=== PATIENT | male | born 1975 | race Caucasian/White ===

== ENCOUNTER → 2016-06-28 | Outpatient (CLI) | payer OTHER ==
--- NOTE | 2016-06-29 08:32 | MR ---
MRI Lower Extremity, Left Knee History: Knee pain. Unable to straighten knee. History of prior surgery. Comparison: None. Technique: MRI was performed of the left knee using a 1.5 [employer] MRI system. Axial, sagittal, and sabra nal images were obtained with standard imaging sequences. Patient could not straighten knee so a card iac coil was used instead of the knee coil. Findings: General: Moderate suprapatellar joint effusion. Ligaments and Tendons: Postsurgical changes are seen of prior ACL reconstruction with complete tear i n the graft. Posterior cruciate ligament is intact. Medial collateral ligament is unremarkable. Edema along the distal pes anserinus. Iliotibial band, fibular collateral ligament, and biceps femoris are intact. Popliteus tendon is intact. Menisci and Cartilage: Complex tear of the medial meniscus. Majority of the posterior horn and body i s absent. Displaced meniscal fragment is seen in the superior meniscal recess between the medial izzy ateral ligament and medial tibial plateau measuring 1 cm. A displaced meniscal fragment is seen super ior to the meniscal root measuring 16 mm. There is maceration and tear of the remaining anterior horn and body. Full-thickness cartilage loss is seen in the medial compartment more predominant in the ce ntral and posterior weightbearing portion. There appears to be an undersurface tear in the anterior h orn lateral meniscus with a perimeniscal cyst anterior to the anterior horn. No significant cartilage attenuation in the lateral compartment. Extensor Mechanism: Cartilage signal abnormality and mild thinning are seen in the patella and trochl ear groove. This is more predominant in the inferior trochlear groove. Quadriceps tendon is unremarka ble. There is abnormal signal intensity in the patellar tendon indicating underlying tendinopathy and also defect from prior graft harvest. Impression: 1. Postsurgical changes of prior ACL reconstruction with complete tear of the graft. 2. Complex tear of the medial meniscus with a majority of the posterior horn and body displaced super ior to the meniscal root and in the superior meniscal recess. 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 3. Undersurface tear anterior horn lateral meniscus and adjacent perimeniscal cyst. 4. Strain distal pes anserinus. 5. Suprapatellar joint effusion. 6. 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 Tendinopathy and postsurgical change patellar tendon.
== END ==
LOC: FIMAGING 16:03
PROVIDERS: ATTEND Physician Assistant
DX: T85.898A Other specified complication of other internal prosthetic devices, implants and grafts, initial encounter (principal); M23.232 Derangement of other medial meniscus due to old tear or injury, left knee; M25.462 Effusion, left knee; M22.42 Chondromalacia patellae, left knee

== ENCOUNTER → 2018-07-01 | Outpatient (CLI) | payer OTHER | LOC: FIMAGING 10:09 | PROVIDERS: ATTEND Orthopaedic Surgery | DX: Z01.818 Encounter for other preprocedural examination (principal); M17.12 Unilateral primary osteoarthritis, left knee; M11.262 Other chondrocalcinosis, left knee; K57.30 Diverticulosis of large intestine without perforation or abscess without bleeding ==

== ENCOUNTER 2018-07-04 09:39 | Observation (INO) | payer OTHER ==
[2018-07-04] MEDS ORDERED: TRANEXAMIC ACID 3,000 MG in NS (SYRINGE) 50 ML IRR ONE (11:00)
[2018-07-04] MEDS ORDERED: ROPIVACAINE 0.2% 80 MG, EPINEPHrine 0.2 MG, KETOROLAC TROMETHAMINE 30 MG in SYRINGE 0 ML IU ONE (11:00)
--- NOTE | 2018-07-16 06:24 | PDHPUP ---
History & Physical Update H&P update statement: This history and physical update is based on an assessment of the patient which was completed after admission or registration (within 24 hours), but prior to the surgery/procedure. H&P update: H&P reviewed & patient examined, no change in patient's condition since H&P completed
[2018-07-16] MEDS ORDERED: ACETAMINOPHEN 325 MG TAB PO ONE (09:21)
[2018-07-16] MEDS ORDERED: ceFAZolin 2 GM/DEXTROSE 100 ML IV ONE (09:21)
[2018-07-16] MEDS ORDERED: LIDOCAINE 1% 2 ML INJ ID PRN (09:21)
[2018-07-16] MEDS ORDERED: LR 1,000 ML IV ONE (09:21)
[2018-07-16] MEDS ORDERED: FAMOTIDINE 20 MG TAB PO ONE (09:21)
[2018-07-16] MEDS ORDERED: DEXAMETHASONE 4 MG/ML VIAL IVP ONE (09:21)
[2018-07-16] MEDS ORDERED: TRANEXAMIC ACID 3,000 MG/50 ML BAG IRR ONE (09:34)
[2018-07-16] MEDS ORDERED: PROPOFOL/EMULSION 500 MG/50 ML BOTTLE IV ONE ×2 (10:01→11:47)
[2018-07-16] MEDS ORDERED: LIDOCAINE 2% 5 ML SDV ONE (10:04)
--- NOTE | 2018-07-16 10:14 | PDANEPAE ---
ANE History of Present Illness left knee OA for TKA ANE Past Medical History - Cardiovascular History Hx Hypertension: Yes Hx Arrhythmias: No Hx Chest Pain: No Hx Coronary Artery / Peripheral Vascular Disease: No Hx CHF / Valvular Disease: No Hx Palpitations: No - Pulmonary History Hx COPD: No Hx Asthma/Reactive Airway Disease: No Hx Recent Upper Respiratory Infection: No Hx Oxygen in Use at Home: No Hx Sleep Apnea: No Sleep Apnea Screening Result - Last Documented: Positive - Neurologic History Hx Cerebrovascular Accident: No Hx Seizures: No Hx Dementia: No - Endocrine History Hx Diabetes: No - Renal History Hx Renal Disorders: No - Liver History Hx Hepatic Disorders: No - Neurological & Psychiatric Hx Hx Neurological and Psychiatric Disorders: No - Cancer History Hx Cancer: No - Congenital Disorder History Hx Congenital Disorders: No - GI History Hx Gastrointestinal Disorders: Yes Gastrointestinal History Comment: diverticulitis - Other Health History Other Health History: none - Chronic Pain History Chronic Pain: No - Surgical History Prior Surgeries: multiple surgeries on both knees 80'-90's ANE Review of Systems Review of systems is: negative Review of Systems: - Exercise capacity METS (RN): 4 METS ANE Patient History - Allergies Allergies/Adverse Reactions: bee venom protein (honey bee) Allergy (Verified 07/03/18 16:15) Other-Enter Comments quinacrine [Quinacrine] Allergy (Verified 07/03/18 16:14) Other-Enter Comments - Home Medications Home medications: home medication list seen and reviewed Home Medications: Acetaminophen [Tylenol 325mg (*)] 325 mg PO DAILY PRN 06/27/18 [Last Taken Unknown] Olmesartan Medoxomil [Benicar] 40 mg PO DAILY 06/27/18 [Last Taken Unknown] Tetrahydrozoline 0.05% [Visine (*)] 1 drops OP DAILY PRN 06/27/18 [Last Taken Unknown] celeCOXIB [Celebrex (*)] 200 mg PO DAILY 06/27/18 [Last Taken Unknown] oxyCODONE IR [Oxycodone Ir (*)] 5 mg PO Q4-6PRN PRN 06/27/18 [Last Taken Unknown ] - NPO status NPO Since - Liquids (Date): 07/16/18 NPO Since - Liquids (Time): 07:30 NPO Since - Solids (Date): 07/15/18 NPO Since - Solids (Time): 20:30 - Anes Hx Anes Hx: no prior problems - Smoking Hx Smoking Status: Light smoker - Family Anes Hx Family Hx Anesthesia Complications: none ANE Labs/Vital Signs - Vital Signs Blood Pressure: 129/86 Heart Rate: 60 Respiratory Rate: 18 O2 Sat (%): 96 Height: 177.8 cm Weight: 94.347 kg ANE Physical Exam - Airway Neck exam: FROM Mallampati Score: Class 1 Mouth exam: normal dental/mouth exam - Pulmonary Pulmonary: no respiratory distress - Cardiovascular Cardiovascular: regular rate and rhythym - ASA Status ASA Status: II ANE Anesthesia Plan Anesthesia Plan: spinal Regional Anesthesia: single shot NB, adductor canal FNB
[2018-07-16] MEDS ORDERED: TRANEXAMIC ACID 3,000 MG in NS (SYRINGE) 50 ML IRR ONE (11:00)
[2018-07-16] MEDS ORDERED: ROPIVACAINE 0.2% 80 MG, EPINEPHrine 0.2 MG, KETOROLAC TROMETHAMINE 30 MG in SYRINGE 0 ML IU ONE (11:00)
[2018-07-16] MEDS ORDERED: MIDAZOLAM 2 MG/2 ML VIAL ONE (11:06)
[2018-07-16] MEDS ORDERED: BUPIVACAINE/DEXTROSE 7.5MG/ML 2 ML SPINAL AMP SP ONE (11:09)
[2018-07-16] MEDS ORDERED: ROPIVACAINE HCL 150 MG/30 ML INJ ONE (11:09)
[2018-07-16] MEDS ORDERED: MIDAZOLAM 2 MG/2 ML VIAL IVP ONE (11:11)
--- NOTE | 2018-07-16 11:11 | POSTANESTH ---
Post Anesthetic Evaluation Cardiovascular Status: Normal, Stable Respiratory Status: Normal, Stable Level of Consciousness/Mental Status: Can Participate in Eval Pain Control: Adequate, Prn Tx Ordered Nausea/Vomiting Control: Adequate, Prn Tx Ordered Complications Possibly Related to Anesthesia: None Noted
[2018-07-16] MEDS ORDERED: fentaNYL 100 MCG/2 ML INJ ONE (11:31)
[2018-07-16] MEDS ORDERED: NALOXONE HCL 0.4 MG/ML INJ IVP PRN (12:11)
[2018-07-16] MEDS ORDERED: ALBUTEROL 3 ML DEYVIAL IH PRN (12:11)
[2018-07-16] MEDS ORDERED: HYDROmorphONE/DILAUDID 2 MG/ML INJ IVP PRN (12:11)
[2018-07-16] MEDS ORDERED: PROMETHAZINE HCL 25 MG/ML INJ IVP PRN ×2 (12:11→12:52)
[2018-07-16] MEDS ORDERED: ACETAMINOPHEN 500 MG TAB PO PRN (12:11)
[2018-07-16] MEDS ORDERED: fentaNYL 100 MCG/2 ML INJ IVP PRN (12:11)
[2018-07-16] MEDS ORDERED: ONDANSETRON 4 MG/2 ML VIAL IVP PRN ×2 (12:11→12:52)
[2018-07-16] MEDS ORDERED: POLYETHYLENE GLYCOL 3350 17 GM PKT PO PRN (12:52)
[2018-07-16] MEDS ORDERED: TEMAZEPAM 15 MG CAP PO PRN (12:52)
[2018-07-16] MEDS ORDERED: diphenhydrAMINE 25 MG CAP PO PRN (12:52)
[2018-07-16] MEDS ORDERED: PROMETHAZINE HCL 25 MG SUPPR PR PRN (12:52)
[2018-07-16] MEDS ORDERED: ONDANSETRON DISINTEGRATING 4 MG TAB PO PRN (12:52)
[2018-07-16] MEDS ORDERED: oxyCODONE IR 5 MG TAB PO PRN (12:52)
[2018-07-16] MEDS ORDERED: METOCLOPRAMIDE 10 MG/2 ML VIAL IVP PRN (12:52)
[2018-07-16] MEDS ORDERED: LACTULOSE 20 GM/30 ML UDCUP PO PRN (12:52)
[2018-07-16] MEDS ORDERED: CYCLOBENZAPRINE 10 MG TAB PO PRN (12:52)
[2018-07-16] MEDS ORDERED: DIPHENOXYLATE/ATROPINE LOMOTIL 1 TAB PO PRN (12:52)
[2018-07-16] MEDS ORDERED: MAGNESIUM HYDROXIDE 30 ML UDCUP PO PRN (12:52)
[2018-07-16] MEDS ORDERED: BISACODYL 10 MG SUPP PR PRN (12:52)
--- NOTE | 2018-07-16 12:52 | POSTOPPROG ---
Post Op Note Date of Operation: 07/16/18 Surgeon: Danay Jenkins Textile Pin Worker: Khushboo Jenkins and Ninfa Mcgregor PAC Anesthesiologist: Dr. Batres Anesthesia: Spinal, Other (Specify) (adductor canal block) Pre-op Diagnosis: left knee OA Post-op Diagnosis: same Indication: left knee pain Procedure: left TKA, robot assisted Findings: severe OA of left knee Inf/Abcess present in the surg proc area at time of surgery?: No EBL: 50-100
[2018-07-16] MEDS ORDERED: LR 1,000 ML IV SCH (13:00)
[2018-07-16] MEDS ORDERED: TETRAHYDROZOLINE 0.05% 15 ML OPHT.BTL OP PRN (15:45)
--- NOTE | 2018-07-16 17:47 | SOAPPROG ---
SOAP Progress Note Assessment/Plan: Assessment: Patient is doing well day of LTKA Pain management: pain is well controlled on oral pain meds. VTE ppx: recommend 81 mg aspirin morning and evening for 4 weeks, cont ANGIE and SCDs Anemia: level is expected initially postop. Asymptomatic. Continue to monitor D/c planning:patient has done much better than anticipated. Patient is stable, BP stable, pain well controlled and patient is eager for discharge to home. Has been cleared by PT Plan: 07/16/18 17:44 Subjective: No shortness of breath, chest pain, nausea, vomiting. Objective: Vital Signs Temp Pulse Resp BP Pulse Ox 36.9 C 66 16 134/88 H 95 07/16/18 16:26 07/16/18 16:26 07/16/18 16:26 07/16/18 16:26 07/16/18 16:26 07/15/18 07/16/18 07/17/18 05:59 05:59 05:59 Intake Total 820 Output Total 930 Balance -110 LLE: incision dressing clean and dry, NVI, positive PF/DF ICD10 Worksheet Patient Problems: Problems Problem Status Onset Primary osteoarthritis of left knee Acute
[2018-07-16] MEDS ORDERED: ACETAMINOPHEN 325 MG TAB PO SCH (18:00)
[2018-07-16] MEDS ORDERED: ceFAZolin 2 GM/DEXTROSE 100 ML IV SCH (18:00)
[2018-07-16 18:03] VITALS: BP 126/88
[2018-07-16] MEDS ORDERED: ASPIRIN 81 MG CHEWABLE TAB PO SCH (21:00)
[2018-07-16] MEDS ORDERED: FAMOTIDINE 20 MG TAB PO SCH (21:00)
[2018-07-16] MEDS ORDERED: SENNOSIDES/DOCUSATE SODIUM TAB PO SCH (21:00)
--- NOTE | 2018-07-16 23:38 | GDS ---
[f rep st] DISCHARGE SUMMARY SUPERVISING PHYSICIAN: Edel Jenkins MD ADMISSION DIAGNOSIS: Left knee osteoarthritis. DISCHARGE DIAGNOSIS: Left knee osteoarthritis. PROCEDURE: Left total knee arthroplasty, robot-assisted. VTE PROPHYLAXIS: Recommend aspirin 81 mg twice daily for 4 weeks. BRIEF DESCRIPTION OF HOSPITAL STAY: Patient was admitted for an elective joint arthroplasty. The pa ranjithnt tolerated the procedure well and has passed physical therapy. The patient was given appropriat e antibiotic prophylaxis and venous thromboembolism prophylaxis. The patient's pain was well control led on oral pain medication, patient was holding down food, and had urinated. Decision was made to d ischarge the patient. The patient was given post-operative prescriptions pre-operatively. PLAN: Follow up with Dr. Jenkins's office on August 07 at 10 a.m. /[id number]/MODL
[2018-07-17] MEDS ORDERED: OLMESARTAN MEDOXOMIL 20 MG TAB PO SCH (09:00)
--- NOTE | 2018-07-22 09:09 | GOP ---
[f rep st] OPERATIVE REPORT DATE OF OPERATION: 07/16/2018 SURGEON: Edel Jenkins MD WOOD CHOPPER: 1. PORSCHE Larsen. 2. PORSCHE Khalil. ANESTHESIA: Spinal. PREOPERATIVE DIAGNOSIS: Left knee osteoarthritis. POSTOPERATIVE DIAGNOSIS: Left knee osteoarthritis. PROCEDURE PERFORMED: Left total knee arthroplasty with computer navigation, robotic assist. FINDINGS: ESTIMATED BLOOD LOSS: 30 cc. INDICATIONS: The patient is a 42-year-old male with severe and progressive pain and deformity of the left knee unresponsive to conservative care. The risks and benefits of surgical intervention were e xplained in detail. DESCRIPTION OF PROCEDURE: The patient was brought to the operative room and placed on the table in t he supine position. Spinal anesthesia was induced without difficulty. A pneumatic tourniquet was appl ied about the left proximal thigh, and the leg was prepped and draped in a sterile fashion. The leg h older was applied. After exsanguination by elevation the tourniquet was inflated to 250 mmHg. Incision was made anterior medial from the tibial tuberosity to a point 2 cm proximal to the superior pole of the patella. Medial parapatellar arthrotomy was carried out from the superior pole of the pa tella and posteriorly in line with the fibers of the Type II VMO. The medial collateral ligament was elevated and the infrapatellar fat pad was resected. The patella was everted and the articular surface was excised. A 38 mm patellar button was placed. Attention was turned first to the distal aspect of the femur. After exposure of the femur, 2 half pi ns were placed for fixation of the femoral array. In a similar fashion, 2 pins were placed anteromed ial on the tibia for fixation of the tibial array. External land marking and registration of the hip center was performed without difficulty. Internal femoral and tibial registration was carried out w ithout difficulty and the femoral and tibial checkpoints were placed and verified for accuracy. Attention was turned to the femur. The foot print for the size 6 femoral component was cut with the saw using the [employer] robotic system and verified for accuracy against the CT based plan. In a similar f ashion, the saw was used to cut the footprint for the size 6 tibial component using the [employer] system an d verified for accuracy against the CT based plan. The tibial articular surface was excised without d ifficulty, followed by the intercondylar box cut. The knee was extended and the remnants of the medial and lateral meniscus were excised. The posterior capsule was injected with ropivacaine, epinephrine and Toradol. A size 6 tibial tray was positioned . Trial reduction was then carried out. There was excellent range of motion, alignment, and stability using the 6 x 9 mm polyethylene. All trials were then removed. The joint was thoroughly irrigated and carefully dried. The press-fit c omponents were implanted. The permanent 6 x 9 mm polyethylene was placed without difficulty. The tourniquet was deflated and all bleeders were coagulated. The wound was thoroughly irrigated and closed using interrupted sutures of 2-0 Vicryl for the joint capsule. The subcu was closed with 3-0 V icryl and the skin with 4-0 Monocryl. Dermabond and Steri-Strips were applied followed by a compress lori dressing. The patient was then moved from the operating room to the recovery room in good conditi on, having tolerated the procedure well. PATHOLOGY: Severe tricompartmental osteoarthritis. /[id number]/MODL
== END 2018-07-16 18:45 | disposition home or self-care (01) ==
LOC: F3N 07-16 09:03
PROVIDERS: ADMIT Orthopaedic Surgery; ATTEND Orthopaedic Surgery
DX: M17.12 Unilateral primary osteoarthritis, left knee (principal); F17.210 Nicotine dependence, cigarettes, uncomplicated; I10 Essential (primary) hypertension; J45.909 Unspecified asthma, uncomplicated; Z87.19 Personal history of other diseases of the digestive system
CPT/HCPCS: 27447; 73560; 97116; 97161; G0378; J0171; J0690; J1100; J1885; J2250; J2704; J2795; J3010